=== PATIENT | male | born 1970 | race Caucasian/White ===

== ENCOUNTER 2018-12-17 21:02 | Emergency (ER) | payer MEDICAID ==
[~2018-12-17] VITALS: Ht 172.7 cm; Wt 70.3 kg
[2018-12-17 21:05] VITALS: BP_SYST 150
[2018-12-17] MEDS ORDERED: LORazepam 1 MG TABLET PO ONE (21:45)
[2018-12-18 00:20] VITALS: BP_SYST 148
== END 2018-12-18 00:20 | disposition home or self-care (01) ==
LOC: SED 21:02
DX: F41.9 Anxiety disorder, unspecified (principal); F43.10 Post-traumatic stress disorder, unspecified; I10 Essential (primary) hypertension; F32.9 Major depressive disorder, single episode, unspecified; Z88.5 Allergy status to narcotic agent; Z88.6 Allergy status to analgesic agent
CPT/HCPCS: 71045; 93005; 99283